=== PATIENT | male | born 1980 | race Caucasian/White ===

== ENCOUNTER 2024-01-04 06:05 | Day surgery (SDC) | payer BC, SELFPAY ==
[2024-01-04 06:00] VITALS: BMI 26.5
[2024-01-04 06:05] VITALS: BP 127/78
[2024-01-04 06:17] VITALS: BMI 26.5
[2024-01-04] MEDS: TYLENOL 1000 MG PO (06:17)
[2024-01-04] MEDS: CELEBREX 200 MG PO (06:17)
[2024-01-04] MEDS: NORMOSOL-R/PLASMALYTE-A 1000 IV (06:19)
[2024-01-04 07:49] VITALS: BP 127/78; BP 127/80
[2024-01-04 08:25] VITALS: BP 136/93
[2024-01-04 08:45] VITALS: BP 135/90
[2024-01-04] MEDS: ZOFRAN 4 MG IV (09:03)
[2024-01-04 09:30] VITALS: BP 127/86
== END 2024-01-04 09:50 | disposition home or self-care (01) ==
LOC: SDS 06:05
PROVIDERS: ATTENDING PHYSICIAN Orthopaedic Surgery
DX: S83.282A Other tear of lateral meniscus, current injury, left knee, initial encounter (principal); S83.242A Other tear of medial meniscus, current injury, left knee, initial encounter; X58.XXXA Exposure to other specified factors, initial encounter; M23.42 Loose body in knee, left knee; M94.262 Chondromalacia, left knee
CPT/HCPCS: 29881; 87070